=== PATIENT | male | born 1940 | race Caucasian/White ===

== ENCOUNTER → 2016-07-14 | Outpatient (CLI) | payer MEDICARE ==
[~2016-07-14] MED LIST: AMBIEN 5MG TABLE5 MG PO; ASPIRIN E.C. 8181 MG PO; CLEOCIN HCL300 MG PO; ELAVIL100 MG PO; FISH OIL1000 MG PO; FLOMAX 0.40.4 MG/CAP PO; IMDUR 30MG30 MG/TAB PO; KLONOPIN WAFER0.5 MG PO; LEXAPRO20 MG PO; LIPITOR20 MG PO; LIPOIC ACID, DL1 POW PO; LOPRESSOR 225 MG/TAB PO; MAALOX ADVANCED1 CTB PO; MIRALAX PA17 GM/Dose PO; MIRAPEX0.75 MG PO; MOBIC 7.5MG7.5 MG PO; MYRBETR25MG PO; NEUPRO1 MG/24 HR TD; NEXIUM 40MG40 MG PO; NITROSTAT0.4 MG/TAB SL; ULTRAM 50MG TAB50 MG PO; UNABLE; VICODIN 5/300 PO; VICODIN ES 7.5 PO; XANAX 0.5MG0.5 MG PO; [UNRECOGNIZED DRUG - OTHER]
== END ==
LOC: COL.VAS 12:10
DX: I65.23 Occlusion and stenosis of bilateral carotid arteries (principal)

== ENCOUNTER → 2016-08-18 | Outpatient (CLI) | payer MEDICARE | LOC: COL.CARD 12:53 | DX: R55 Syncope and collapse (principal) ==

== ENCOUNTER 2018-01-28 13:00 | Outpatient (RCR) | payer MEDICARE | END 2018-02-17 | disposition home or self-care (01) | LOC: WSPT | DX: M48.02 Spinal stenosis, cervical region (principal); Z79.82 Long term (current) use of aspirin; Z79.899 Other long term (current) drug therapy | CPT/HCPCS: G8981-GP; G8982-GP ==

== ENCOUNTER 2018-10-25 15:00 | Outpatient (RCR) | payer MEDICARE | END 2018-11-19 17:00 | disposition home or self-care (01) | LOC: WSPT 15:00 | DX: M54.2 Cervicalgia (principal) ==

== ENCOUNTER 2019-10-14 14:11 | Emergency (ER) | payer MEDICARE ==
[~2019-10-14] VITALS: Ht 177.8 cm; Wt 81.8 kg
[2019-10-14 14:17] VITALS: BP 188/120; TEMP 97.5
[2019-10-14] MEDS ORDERED: ULTRAM 50MG TAB50 MG PO (16:32)
[2019-10-14 18:12] VITALS: PULSE 58
== END 2019-10-14 17:06 | disposition home or self-care (01) ==
LOC: COL.ER 14:11
DX: S12.112A Nondisplaced Type II dens fracture, initial encounter for closed fracture (principal); I25.10 Atherosclerotic heart disease of native coronary artery without angina pectoris; R55 Syncope and collapse; Z90.89 Acquired absence of other organs; Z79.82 Long term (current) use of aspirin; Z87.891 Personal history of nicotine dependence; W22.8XXA Striking against or struck by other objects, initial encounter
CPT/HCPCS: L0120

== ENCOUNTER → 2020-02-02 | Outpatient (CLI) | payer MEDICARE | LOC: COL.RAD 08:10 | DX: S12.112D Nondisplaced Type II dens fracture, subsequent encounter for fracture with routine healing (principal); M47.812 Spondylosis without myelopathy or radiculopathy, cervical region ==

== ENCOUNTER → 2020-03-15 | Outpatient (CLI) | payer MEDICARE | LOC: COL.CARD 09:31 | DX: R55 Syncope and collapse (principal) ==

== ENCOUNTER → 2020-11-13 | Outpatient (CLI) | payer MEDICARE ==
[~2020-11-13] MED LIST changes: +ALPHA LIPOIC A200 M2 PO; +B-121000 MCG PO; +BENAZEPRIL PO; +FERROUSAL325 MG PO; +FOLIC ACID 11 MG/TA1 PO; +LIPITOR 10MG10 MG PO; -LIPITOR20 MG PO; +LOTENSIN HCT 101 TAB PO; +MAGNESIUM500 MG PO; +MELATON PO; +PROLIA60 MG/ML SQ; +REQUIP XL2 MG PO; +REQUIP XL4 MG PO; +THE MEDICINE S200 M2 PO; +TOPROL XL 25MG25 MG PO; +VITAMIN C500 MG PO; +VITAMIN D31000 I1 PO; +[UNRECOGNIZED DRUG - OTHER] PO
== END ==
LOC: COL.RAD 10:44
DX: I65.29 Occlusion and stenosis of unspecified carotid artery (principal); G25.81 Restless legs syndrome; G47.33 Obstructive sleep apnea (adult) (pediatric)
CPT/HCPCS: Q9967

== ENCOUNTER 2020-11-15 10:34 | Outpatient (CLI) | payer MEDICARE ==
[~2020-11-15] VITALS: Ht 177.8 cm; Wt 79.5 kg
[~2020-11-15 10:34] MED LIST changes: -ALPHA LIPOIC A200 M2 PO; -B-121000 MCG PO; -BENAZEPRIL PO; -FERROUSAL325 MG PO; -FOLIC ACID 11 MG/TA1 PO; -LOTENSIN HCT 101 TAB PO; -MAGNESIUM500 MG PO; -MELATON PO; -PROLIA60 MG/ML SQ; -REQUIP XL2 MG PO; -REQUIP XL4 MG PO; -THE MEDICINE S200 M2 PO; -TOPROL XL 25MG25 MG PO; -VITAMIN C500 MG PO; -VITAMIN D31000 I1 PO; -[UNRECOGNIZED DRUG - OTHER] PO
[2020-11-15 11:37] VITALS: BP 157/77; PULSE 56; TEMP 97
[2020-11-15] MEDS ORDERED: LOTENSIN HCT 101 TAB PO (12:05)
[2020-11-15] MEDS ORDERED: BENAZEPRIL PO (12:07)
[2020-11-15] MEDS ORDERED: [UNRECOGNIZED DRUG - OTHER] PO (12:07)
[2020-11-15] MEDS ORDERED: VITAMIN D31000 I1 PO (12:08)
[2020-11-15] MEDS ORDERED: THE MEDICINE S200 M2 PO (12:09)
[2020-11-15] MEDS ORDERED: FERROUSAL325 MG PO (12:15)
[2020-11-15] MEDS ORDERED: FOLIC ACID 11 MG/TA1 PO (12:17)
[2020-11-15] MEDS ORDERED: MAGNESIUM500 MG PO (12:17)
[2020-11-15] MEDS ORDERED: MELATON PO (12:18)
[2020-11-15] MEDS ORDERED: MYRBETR25MG PO (12:19)
[2020-11-15] MEDS ORDERED: TOPROL XL 25MG25 MG PO (12:19)
[2020-11-15] MEDS ORDERED: MIRALAX PA17 GM/Dose PO (12:20)
[2020-11-15] MEDS ORDERED: REQUIP XL4 MG PO (12:22)
[2020-11-15] MEDS ORDERED: REQUIP XL2 MG PO (12:22)
[2020-11-15] MEDS ORDERED: B-121000 MCG PO (12:25)
[2020-11-15] MEDS ORDERED: VITAMIN C500 MG PO (12:25)
[2020-11-15] MEDS ORDERED: PROLIA60 MG/ML SQ (12:26)
[2020-11-15] MEDS ORDERED: ALPHA LIPOIC A200 M2 PO (12:27)
[2020-11-15 13:00] VITALS: BP 160/99; PULSE 58
--- NOTE | 2020-11-15 13:15 | NUR ---
Pt escorted out via wheelchair by this nurse.
== END 2020-11-15 16:06 ==
LOC: COL.CAR 10:34
DX: R55 Syncope and collapse (principal); F41.9 Anxiety disorder, unspecified; I25.10 Atherosclerotic heart disease of native coronary artery without angina pectoris; N40.0 Benign prostatic hyperplasia without lower urinary tract symptoms; F32.9 Major depressive disorder, single episode, unspecified; I10 Essential (primary) hypertension; K21.9 Gastro-esophageal reflux disease without esophagitis; E78.5 Hyperlipidemia, unspecified; D50.9 Iron deficiency anemia, unspecified; G89.29 Other chronic pain; G47.30 Sleep apnea, unspecified

== ENCOUNTER 2021-12-04 12:05 | Outpatient (CLI) | payer MEDICARE ==
[~2021-12-04] VITALS: Ht 177.8 cm; Wt 78.2 kg
[2021-12-04] VITALS (7 sets, daily range): BP systolic 123–168; BP diastolic 79–93; PULSE 57–74; TEMP 94.7
[~2021-12-04 12:05] MED LIST changes: +ALPHA LIPOIC A200 M2 PO; +B-121000 MCG PO; +BENAZEPRIL PO; +FERROUSAL325 MG PO; +FOLIC ACID 11 MG/TA1 PO; +LOTENSIN HCT 101 TAB PO; +MAGNESIUM500 MG PO; +MELATON PO; +PROLIA60 MG/ML SQ; +REQUIP XL2 MG PO; +REQUIP XL4 MG PO; +SUNOSI150 MG PO; +THE MEDICINE S200 M2 PO; +TOPROL XL 25MG25 MG PO; +VITAMIN C500 MG PO; +VITAMIN D31000 I1 PO; +[UNRECOGNIZED DRUG - OTHER] PO
--- NOTE | 2021-12-04 15:18 | NUR ---
Pt is ready for departure. Pt denies any new pain etc. I reviewed dc instructions r/t myelogram with patient, and he verbs understanding. Pt is steady on his feet. Pt to exit via wheelchair.
== END 2021-12-04 15:25 | disposition home or self-care (01) ==
LOC: COL.RAD 12:05
DX: M50.11 Cervical disc disorder with radiculopathy, high cervical region (principal); M50.121 Cervical disc disorder at C4-C5 level with radiculopathy; M50.123 Cervical disc disorder at C6-C7 level with radiculopathy; M50.13 Cervical disc disorder with radiculopathy, cervicothoracic region; M48.02 Spinal stenosis, cervical region; M41.9 Scoliosis, unspecified; M43.22 Fusion of spine, cervical region
CPT/HCPCS: Q9967

== ENCOUNTER 2022-04-23 11:00 | Outpatient (RCR) | payer MEDICARE ==
[2022-04-17 11:52] VITALS: BP 147/71; PULSE 68; TEMP 97.5
[2022-04-21 12:00] VITALS: BP 134/73; PULSE 78; TEMP 98
[~2022-04-23] VITALS: Ht 175.3 cm; Wt 78.8 kg
[~2022-04-23 11:00] MED LIST changes: +ASPIRIN 32325 MG/TAB PO; +BETAMETHASONE D15 G1 TP; +CELEBREX 200MG200 MG PO; +LOTENSIN5 MG PO; +MOTRIN 600600 MG/TAB PO; +NORCO 325 MG-51 TAB PO; +NORVASC2.5 MG PO; +PAXLOVID 150-11 EACH PO; +PHARMASSURE ZIN50 MG PO; +REQUIP2 MG PO; +REQUIP4 MG PO; +ROBAXIN 75750 MG/TAB PO; +ROXICODONE 55 MG/TAB PO; +SENEXON-S 50-81 EACH PO; +SENNA-LAX8.6 MG PO; +TYLENOL 500MG500 MG PO
[2022-04-23 11:39] VITALS: BP 110/53; PULSE 74; TEMP 97.8
--- NOTE | 2022-04-23 12:30 | NUR ---
PT doing well during his iron infusion. Pt has restless leg syndrome, so we took a walk around the nurses station. Pt was steady on his feet with a walker. he has call light and will call again if he would like to walk again.
== END 2022-04-23 16:26 | disposition home or self-care (01) ==
LOC: EUO 11:00
DX: E61.1 Iron deficiency (principal)
CPT/HCPCS: J1756; J7050

== ENCOUNTER 2022-06-09 14:15 | Outpatient (RCR) | payer MEDICARE | END 2022-06-13 | disposition home or self-care (01) | LOC: WSPT | DX: Z47.89 Encounter for other orthopedic aftercare (principal); M25.551 Pain in right hip ==

== ENCOUNTER 2022-06-16 10:30 | Emergency (ER) | payer MEDICARE ==
[~2022-06-16] VITALS: Ht 177.8 cm; Wt 75.0 kg
[2022-06-16 10:53] LABS: BASO % 0.2 % (0.0-2.0); EOS # 0.1 K/mm3 (0.0-0.7); EOS % 1.2 % (0.0-4.0); GRAN # 8.1 K/mm3 (1.4-6.5); GRAN % 84.6 % (42.2-75.2); HEMOGLOBIN 10.2 g/dl (13.5-18.0); LYMPH # 0.5 K/mm3 (1.2-3.4); LYMPH % 4.8 % (20.0-51.0); MEAN CELL VOLUME 87 fl (80.0-100.0); MEAN CORPUSCULAR HEMOGLOBIN 30 pg (27-31); MEAN CORPUSCULAR HGB CONC 34 g/dl (33.0-37.0); MEAN PLATELET VOLUME 10.3 fl (7.4-10.4); MONO # 0.8 K/mm3 (0.1-0.6); MONO % 8.7 % (1.7-9.3); PLATELET COUNT 223 K/mm3 (130-400); RED BLOOD COUNT 3.43 M/mm3 (4.20-5.60); REDCELL DISTRIBUTION WIDTH-CV 15.4 % (11.5-14.5)
[2022-06-16 10:56] LABS: HEMATOCRIT 29.9 % (42.0-52.0)
[2022-06-16 11:07] LABS: ALBUMIN 3.2 gm/dL (3.4-4.8); BILIRUBIN,TOTAL 0.3 mg/dL (0.2-1.2); CALCIUM 8.2 mg/dL (8.4-10.2); CREATININE, serum 1.31 mg/dL (0.72-1.25); POTASSIUM 4.2 mmol/L (3.5-4.5)
[2022-06-16 11:13] LABS: TROPONIN-I 0.012 ng/mL (0.00-0.033)
[2022-06-16] MEDS ORDERED: DOXYCYCLINE 10100 MG PO (12:33)
[2022-06-16 13:13] VITALS: BP 148/76; PULSE 82; TEMP 98.1
== END 2022-06-16 13:13 | disposition home or self-care (01) ==
LOC: COL.ER 10:30
PROVIDERS: Emergency Medicine
DX: J18.9 Pneumonia, unspecified organism (principal); E87.1 Hypo-osmolality and hyponatremia; R74.01 Elevation of levels of liver transaminase levels; R79.89 Other specified abnormal findings of blood chemistry; R79.1 Abnormal coagulation profile; Z88.2 Allergy status to sulfonamides; Z88.1 Allergy status to other antibiotic agents; Z20.822 Contact with and (suspected) exposure to COVID-19
CPT/HCPCS: J0696; Q9967

== ENCOUNTER 2022-06-18 08:14 | Inpatient (IN) | payer MEDICARE ==
[~2022-06-18] VITALS: Ht 175.3 cm; Wt 75.0 kg
[~2022-06-18 08:14] MED LIST changes: +DOXYCYCLINE 10100 MG PO
[2022-06-18 08:57] LABS: BASO % 0.2 % (0.0-2.0); EOS # 0.1 K/mm3 (0.0-0.7); EOS % 1.5 % (0.0-4.0); GRAN # 7.2 K/mm3 (1.4-6.5); GRAN % 80.2 % (42.2-75.2); HEMOGLOBIN 10.2 g/dl (13.5-18.0); LYMPH # 0.7 K/mm3 (1.2-3.4); LYMPH % 7.3 % (20.0-51.0); MEAN CELL VOLUME 88 fl (80.0-100.0); MEAN CORPUSCULAR HEMOGLOBIN 30 pg (27-31); MEAN CORPUSCULAR HGB CONC 34 g/dl (33.0-37.0); MEAN PLATELET VOLUME 9.8 fl (7.4-10.4); MONO # 0.9 K/mm3 (0.1-0.6); MONO % 10.4 % (1.7-9.3); PLATELET COUNT 252 K/mm3 (130-400); RED BLOOD COUNT 3.42 M/mm3 (4.20-5.60); REDCELL DISTRIBUTION WIDTH-CV 15.6 % (11.5-14.5)
[2022-06-18 09:12] LABS: ALBUMIN 2.9 gm/dL (3.4-4.8); BILIRUBIN,TOTAL 0.3 mg/dL (0.2-1.2); C-REACTIVE PROTEIN 13.17 mg/dL (0.00-0.50); CALCIUM 7.4 mg/dL (8.4-10.2); TOTAL PROTEIN 6.6 gm/dL (6.2-8.1)
[2022-06-18] MEDS ORDERED: FLORINEF ACETA0.1 MG PO (09:14)
[2022-06-18] MEDS ORDERED: ASPIRIN 81M81 MG/TA2 PO (09:14)
[2022-06-18] MEDS ORDERED: SUNOSI150 MG PO (09:15)
[2022-06-18 11:53] LABS: COLLECTION METHOD CLEAN CATCH
[2022-06-18 12:10] LABS: SQUAMOUS EPITHELIAL None Seen /hpf (0-10); URINE BACTERIA Rare /hpf (NONE SEEN); URINE RBC None Seen /hpf (0-2)
[2022-06-18 12:11] LABS: URINE APPEARANCE Clear (CLEAR/HAZY); URINE BLOOD Negative (NEGATIVE); URINE COLOR Yellow (YELLOW); URINE GLUCOSE Negative (NEGATIVE); URINE KETONE Negative (NEGATIVE); URINE NITRATE Negative (NEGATIVE); URINE PROTEIN(semi-quant) Negative (NEGATIVE); URINE UROBILINOGEN 0.2 E.U/dL (0.2-1.0)
[2022-06-18] MEDS ORDERED: MIRAPEX0.25 MG PO (12:57)
[2022-06-18 13:48] VITALS: BP 119/74; PULSE 98; TEMP 98
[2022-06-18 16:28] VITALS: BP 171/77; PULSE 82; TEMP 97.5
[2022-06-18 16:45] LABS: CALCIUM 7.5 mg/dL (8.4-10.2); CREATININE, serum 0.86 mg/dL (0.72-1.25); POTASSIUM 4.2 mmol/L (3.5-4.5)
--- NOTE | 2022-06-18 18:31 | NUR ---
PATIENT IS HER FOR RLL PNEUMONIA WITH PLEURAL EFFUSIONS. PATIENT IS AXOX4, BUT IS CONFUSED AND IS NOT ABLE TO BE EDUCATED. EARLIER TODAY PATIENT WANTED TO LEAVE AMA, BECAUSE WE WOULD NOT LET HIM TAKE HIS HOME MEDICATIONS IN HIS ROOM. WE WERE ABLE TO CALL THE FAMILY, AND THE DAUGHTER CAME TO STAY WITH HIM. HE IS BETTER NOW. VSS. STARTED ON ZOSYN. PENDING URINE SAMPLE AMD SPUTUM. BED ALARM ON.
[2022-06-18 19:45] VITALS: BP 127/61; PULSE 81; TEMP 99.4
--- NOTE | 2022-06-18 20:40 | NUR ---
pt found with his home bottle of mirapex, refuses to give to nursing, pt feels he should not have to wait for nursing staff to bring meds to him. notified powerhouse electrician PHYLLIS Rojas. she discussed situation with pt, still refused to turn over. Mima Hurt APRN notified, will hold all scheduled mirapex.
[2022-06-18 23:27] VITALS: BP 97/68; PULSE 80; TEMP 98
[2022-06-19 03:00] VITALS: BP 137/73; PULSE 57; TEMP 98.8
--- NOTE | 2022-06-19 06:21 | NUR ---
pt insisting on self administering his own mirapex, will not turn over bottle to staff. holding scheduled mirapex. pt c/o severe chest and back pain with coughing this shift, started on norco and cough med as requested. requiring 1L O2 per NC, refused cpap tonite. urine collected and sent to lab, unable to cough up any sputum for testing.
[2022-06-19 06:59] LABS: BASO % 0.3 % (0.0-2.0); EOS # 0.2 K/mm3 (0.0-0.7); EOS % 2.7 % (0.0-4.0); GRAN # 5.8 K/mm3 (1.4-6.5); GRAN % 79.6 % (42.2-75.2); LYMPH # 0.6 K/mm3 (1.2-3.4); LYMPH % 7.5 % (20.0-51.0); MEAN CELL VOLUME 88 fl (80.0-100.0); MEAN CORPUSCULAR HGB CONC 33 g/dl (33.0-37.0); MEAN PLATELET VOLUME 10.4 fl (7.4-10.4); MONO # 0.7 K/mm3 (0.1-0.6); MONO % 9.4 % (1.7-9.3); PLATELET COUNT 224 K/mm3 (130-400); RED BLOOD COUNT 2.93 M/mm3 (4.20-5.60); REDCELL DISTRIBUTION WIDTH-CV 15.7 % (11.5-14.5)
[2022-06-19 07:00] LABS: HEMATOCRIT 25.9 % (42.0-52.0); HEMOGLOBIN 8.5 g/dl (13.5-18.0); MEAN CORPUSCULAR HEMOGLOBIN 29 pg (27-31)
[2022-06-19 07:27] LABS: CALCIUM 6.8 mg/dL (8.4-10.2); CREATININE, serum 0.8 mg/dL (0.72-1.25); POTASSIUM 3.9 mmol/L (3.5-4.5)
[2022-06-19 08:01] VITALS: BP 115/59; PULSE 73; TEMP 99.1
--- NOTE | 2022-06-19 10:44 | NUR ---
SHIFT ASSESSMENT COMPLETED AND MORNING MEDICATIONS ADMINISTERED PER ORDER. PATIENT IS ALERT AND ORIENTED X4. C/O PAIN /, WILL ADMINISTER PRN. PATIENT HAS HIS OWN MEDS IN HIS ROOM. THIS RN ATTEMPTED TO REMOVE MEDICATIONS, PATIENT WILL NOT ALLOW STAFF TO DO SO. EDUCATION PROVIDED ON RISKS OF HAVING MEDICATIONS IN ROOM AND INABILITY OF STAFF TO ADMINISTER CERTAIN MEDICATIONS DUE TO RISK OF OVERDOSING. PATIENT VERBALIZED UNDERSTANDING. DENIES NEEDS. CALL LIGHT WITHIN REACH.
--- NOTE | 2022-06-19 13:02 | NUR ---
PATIENT C/O PAIN 10/10 WHILE COUGHING. PATIENT NOTED TO BE DROWSY. PER BATH SOLUTION MAKER, PATIENT WAS FALLING ASLEEP WHILE DISCUSSING DIET WITH HER. PER PA, PATIENT WAS DROWSY DURING ROUNDS WELL. PATIENT CONTINUES TO KEEP MIRAPEX IN HIS ROOM AND IS TAKING MEDICATION WHEN HE WANTS. THIS RN UNAWARE OF HOW MANY DOSES PATIENT HAS HAD. PATIENT GIVEN PRN APAP PER ORDER FOR PAIN. PATIENT STATES HE IS CONTINUING TO HAVE PAIN AND WOULD LIKE NARCOTICS. THIS RN INFORMED PATIENT THAT DUE TO HIM BEING DROWSY AND TAKING AN UNKNOWN AMOUNT OF MIRAPEX, IT IS NOT SAFE TO HAVE NARCOTICS AT THIS TIME. PA AND HOSPITALIST UPDATED AND AGREE THAT RN SHOULD NOT ADMINISTER NARCOTICS WHILE PATIENT IS DROWSY AND TAKING UNKNOWN DOSES OF MIRAPEX. PATIENT'S DAUGHTER, SURAJ UPDATED. COLD HEADER UPDATED WHO WILL VISIT WITH THE PATIENT.
--- NOTE | 2022-06-19 13:08 | NUR ---
PATIENT REFUSED 1200 VITAL SIGNS.
--- NOTE | 2022-06-19 13:18 | NUR ---
PAIN MANAGEMENT DISCUSSED WITH PA. NEW ORDERS RECEIVED FOR IBUPROFEN AND LIDOCAINE PATCH. PATIENT UPDATED REGARDING PLAN OF CARE, IS AGREEABLE TO PAIN INTERVENTIONS AT THIS TIME.
[2022-06-19 14:00] VITALS: BP 124/70; PULSE 76
--- NOTE | 2022-06-19 14:01 | NUR ---
PATIENT STATES HE HAS ESOPHAGEAL SPASMS FOR WHICH HE TAKES SUBLINGUAL NITRO. PATIENT STATES HE IS CURRENTLY EXPERIENCING AN ESOPHAGEAL SPASM. DOM PATEL UPDATED, NEW ORDER FOR PRN NITRO RECEIVED IF SBP IS GREATER >110.
[2022-06-19 15:25] VITALS: BP 98/56; PULSE 62; TEMP 97.4
--- NOTE | 2022-06-19 15:39 | NUR ---
Junior Accountant met with patient to discuss discharge planning. Patient and his , Romy Ace live in [place] with their daughter, Nikia and son in law. Patient sees Dr. Childers for primary care and obtains medications from [facility]. Patient does not use home oxygen, however is currently requiring it. Patient uses a home CPAP. Patient reports independence with ADLS and plans to return home at time of discharge. PT/OT recommend home with Home Health. SW discussed HH with patient who stated he already has this established. Patient advised his primary DPOA-HC is his , Romy Ace. SW attempted to contact patient's daughter, Nikia and left a message. Discharge Plan: Home with HH
--- NOTE | 2022-06-19 18:14 | NUR ---
PATIENT IN BED AT THIS TIME. DENIES NEEDS OR PAIN. ON IV ZOSYN, TOLERATING WELL.
[2022-06-19 19:51] VITALS: BP 103/58; PULSE 61; TEMP 97.8
--- NOTE | 2022-06-19 20:30 | NUR ---
Initial shift assessment done- states only has pain when coughing now,, will give cough medicine with night meds, alert/oriented x4, Tele on-SR, having a productive cough- specimen cup given and sputum culture abtained and will send to lab, o2 sats 94% on RA, SCD,s on.
--- NOTE | 2022-06-19 22:00 | NUR ---
Mima CORNELIUS called regarding Metoprolol dose tonight- SBP 103,,HR 61,,states to hold just tonights dose for now--
[2022-06-19 23:37] VITALS: BP 135/66; PULSE 98; TEMP 97.5
[2022-06-20 03:19] VITALS: BP 125/70; PULSE 68; TEMP 97.7
--- NOTE | 2022-06-20 06:30 | NUR ---
States having pain when coughing-- Tylenol given and cough medicine given at this time.
[2022-06-20 06:39] LABS: BASO % 0.2 % (0.0-2.0); EOS # 0.3 K/mm3 (0.0-0.7); EOS % 4.4 % (0.0-4.0); GRAN # 5.1 K/mm3 (1.4-6.5); LYMPH # 0.6 K/mm3 (1.2-3.4); LYMPH % 9.1 % (20.0-51.0); MEAN CELL VOLUME 89 fl (80.0-100.0); MEAN CORPUSCULAR HGB CONC 33 g/dl (33.0-37.0); MEAN PLATELET VOLUME 10.2 fl (7.4-10.4); MONO # 0.6 K/mm3 (0.1-0.6); MONO % 8.8 % (1.7-9.3); PLATELET COUNT 266 K/mm3 (130-400); RED BLOOD COUNT 2.95 M/mm3 (4.20-5.60); REDCELL DISTRIBUTION WIDTH-CV 15.9 % (11.5-14.5)
[2022-06-20 06:40] LABS: CALCIUM 6.9 mg/dL (8.4-10.2); CREATININE, serum 0.82 mg/dL (0.72-1.25); POTASSIUM 3.9 mmol/L (3.5-4.5)
[2022-06-20 06:41] LABS: HEMATOCRIT 26.1 % (42.0-52.0); HEMOGLOBIN 8.7 g/dl (13.5-18.0); MEAN CORPUSCULAR HEMOGLOBIN 29 pg (27-31)
[2022-06-20 08:12] VITALS: BP 125/74; PULSE 75; TEMP 98.5
[2022-06-20 11:37] VITALS: BP 121/71; PULSE 79; TEMP 97.9
--- NOTE | 2022-06-20 14:27 | NUR ---
International Accounting Manager spoke with patient's daughter, Nikia about discharge planning. Nikia advised patient does not have established Home Health, but has been going to outpatient PT with [facility]. Nikia is open to Home Health depending on how patient does closer to discharge. NIGEL offered assistance with either continuing outpatient therapy vs establishing Home Health. Discharge Plan: Home, outpatient PT vs Home Health
--- NOTE | 2022-06-20 15:35 | NUR ---
PHARMACOLOGY TEACHER IN ROOM WITH PATIENT, PATIENT C/O PAIN 5/10. PRN APAP GIVEN BY PHARMACOLOGY TEACHER.
[2022-06-20 15:52] VITALS: BP 141/67; PULSE 71; TEMP 97.5
--- NOTE | 2022-06-20 17:17 | NUR ---
PATIENT IN BED AT THIS TIME EATING DINNER. STATES HIS PAIN IS IMPROVING AND HE IS HAVING LESS PAIN WHILE COUGHING. RATES CURRENT PAIN AT 3-4/10. REQUESTED PRN IBUPROFEN, STATES HE DOES NOT WANT TO TAKE NORCO AT THIS TIME. DR. LERNER UPDATED, NEW ORDER RECIEVED FOR IBUPROFEN X1. PATIENT DENIES FURTHER NEEDS AT THIS TIME, CALL LIGHT IN PLACE.
--- NOTE | 2022-06-20 18:43 | NUR ---
ASSESSMENT COMPLETED. AT APPROX 0940, PATIENT NOTED TO HAVE COUGHING EPISODE WITH INCREASED PAIN. PHYSICIAN IN ROOM AT TIME, EKG, TROPONIN, AND CTA ORDERED. PHYSICIAN AWARE OF RESULTS OF TESTING. MORPHINE GIVEN X1 FOR PAIN, WHICH PATIENT STATES WAS EFFECTIVE.
[2022-06-20 19:22] VITALS: BP 110/60; PULSE 64; TEMP 97.9
[2022-06-20 23:49] VITALS: BP 120/70; PULSE 66; TEMP 97.6
--- NOTE | 2022-06-21 01:31 | NUR ---
06/20/222014 THE PT. INFORMED ME THAT THE SURGEON HAD BEEN IN TO SEE HIM AND EXPLAINED THAT HE WOULD NE TAKING HIM FOR A PROCEDURE TOMORROW MORNING, I LET HIM KNOW I HAD NOT SEEN THE SURGEON MYSELF, BUT IF THAT WAS THE CASE THTA HE WOULD BE NPO AT MIDNIGHT, ABD THAT I WOULD KEEP MY EYE OUT FOR ANY ORDERS THT THE SURGEON ENTERED. PT. C/O INCREASED PAIN WITH COUGHING, BUT STATED THAT THE LEVEL OF PAIN THIS LAST TIME WAS BETTER THAN IT HAD BEEN THIS MORNING. HE STATED THAT HIS PAIN WITH COUGHING THIS MORNING WAS A 10/10, BUT THE LAST TIME HE STARTED COUGHING IT WAS ONLY AN 8/10.
[2022-06-21 03:26] VITALS: BP 147/75; PULSE 66; TEMP 97.4
[2022-06-21 06:29] LABS: BASO % 0.3 % (0.0-2.0); EOS # 0.3 K/mm3 (0.0-0.7); EOS % 3.8 % (0.0-4.0); GRAN # 5.1 K/mm3 (1.4-6.5); GRAN % 77.9 % (42.2-75.2); LYMPH # 0.5 K/mm3 (1.2-3.4); LYMPH % 8.3 % (20.0-51.0); MEAN CELL VOLUME 89 fl (80.0-100.0); MEAN CORPUSCULAR HGB CONC 33 g/dl (33.0-37.0); MEAN PLATELET VOLUME 10.1 fl (7.4-10.4); MONO # 0.6 K/mm3 (0.1-0.6); MONO % 8.9 % (1.7-9.3); PLATELET COUNT 308 K/mm3 (130-400); RED BLOOD COUNT 3.12 M/mm3 (4.20-5.60); REDCELL DISTRIBUTION WIDTH-CV 15.8 % (11.5-14.5)
[2022-06-21 06:36] LABS: HEMATOCRIT 27.7 % (42.0-52.0); HEMOGLOBIN 9.1 g/dl (13.5-18.0); MEAN CORPUSCULAR HEMOGLOBIN 29 pg (27-31)
[2022-06-21 06:46] LABS: CALCIUM 7.4 mg/dL (8.4-10.2); CREATININE, serum 0.84 mg/dL (0.72-1.25); POTASSIUM 4.1 mmol/L (3.5-4.5)
[2022-06-21 07:49] VITALS: BP 159/77; PULSE 76; TEMP 98
--- NOTE | 2022-06-21 08:00 | NUR ---
Consent signed. LR started at 30ml/hr on gravity tubing to RAC. Pt to OR via bed with OR nurse.
[2022-06-21 12:52] VITALS: BP 121/69; PULSE 69; TEMP 98.4
--- NOTE | 2022-06-21 13:45 | NUR ---
RETURNED FROM SURGERY AT 0945 - VITALS Q15 BEGAN UNTIL 1030 WHERE 4, 30 MINUTE CHECKS BEGAN.
[2022-06-21 15:35] VITALS: BP 145/84; PULSE 70; TEMP 97.5
--- NOTE | 2022-06-21 17:59 | NUR ---
ASSESSMENT COMPLETED THIS AM. A&O X4 AND PLEASANT THROUGHOUT SHIFT. O2 3L PER NC. CHEST TUBE PLACED THIS AM - TO SUCTION - TOTAL OF 180ML OF FLUID MEASURED IN DRAINAGE CHEST TUBE COLLECTION CANISTER. DRESSING REINFORED DUE TO SEROUSANGIOUSNESS NOTED ON ORIGINAL DRESSING THE DAY PROGRESSED. TYLENOL ADMINISTERED FOR COMPLAINTS OF PAIN TO CHEST TUBE INSERTION SITE. PT REPORTS TYLENOL EFFECTIVE. PT WENT MOST OF DAY WITHOUT VOIDING - ENCOURAGED FLUIDS - AND HAS SINCE HAS GOOD OUPUT.
[2022-06-21 19:41] VITALS: BP 141/75; PULSE 69; TEMP 97.5
--- NOTE | 2022-06-21 20:30 | NUR ---
PT.'S CHEST TUBE SITE HAD BEEN LEAKING EARLIER, SO I CHECKED THE SITE AND DRESSING TO MAKE SURE THAT IT WAS OK AFTER THEY HAD HAD TO REINFORCE IT. DRESSING IS C/D/I WITH NO SIGNS OF ANY NEW DRAINAGE, WILL CONTINUE TO MONITOR.
[2022-06-21 23:57] VITALS: BP 166/84; PULSE 69; TEMP 97.8
[2022-06-22 04:29] VITALS: BP 171/89; PULSE 69; TEMP 97.5
[2022-06-22 08:32] VITALS: BP 131/71; PULSE 71; TEMP 98
--- NOTE | 2022-06-22 10:24 | NUR ---
SW met with pt to complete intake. Pt reports he lives with , daughter and son in law. His daughter, Nikia @ [phone] and his is Romy Ace. Pt reports he has a CPAP, walker and walking stick and is independent on all ADLs. PCP is Jorge Martinez and gets medications from [facility]. No DPOA-HC is his . No other needs at this time. SW await for further recommendations and follow up as needed. DC: Home, pending PT Eval.
[2022-06-22 12:46] VITALS: BP 108/68; PULSE 71; TEMP 98.2
--- NOTE | 2022-06-22 16:35 | NUR ---
ASSESSMENT COMPLETED THIS AM. CHEST TUBE INCISION SHOWS NO NEW DRAINAGE SINCE YESTERDAY. REINFORCEMENT DRESSING CDI. SURGICAL DR. GARSIA CHEST TUBE SUCTION - CURRENTLY WATER SUCTION - OUTPUT DECREASED SINCE YESTERDAY. CHEST XRAY COMPLETED THIS MORNING, ANOTHER ONE SCHEDULED FOR THE AM. IV TO BOONE GARSIA PER KELLEN, NEW 22G IN LFA. PT HAS BEEN SITTING UP IN THE CHAIR MOST OF THE DAY. PTS PAIN HAS IMPROVED 4/10, DECLINES OFFER FOR TYLENOL.
[2022-06-22 19:18] VITALS: BP 145/79; PULSE 67; TEMP 98.5
[2022-06-22 23:06] VITALS: BP 160/80; PULSE 73; TEMP 97.1
[2022-06-23 03:24] VITALS: BP 156/84; PULSE 60; TEMP 97.9
[2022-06-23 06:56] LABS: BASO % 0.3 % (0.0-2.0); EOS # 0.3 K/mm3 (0.0-0.7); GRAN # 4.5 K/mm3 (1.4-6.5); LYMPH # 0.9 K/mm3 (1.2-3.4); LYMPH % 14.5 % (20.0-51.0); MEAN CELL VOLUME 90 fl (80.0-100.0); MEAN CORPUSCULAR HGB CONC 32 g/dl (33.0-37.0); MEAN PLATELET VOLUME 10.2 fl (7.4-10.4); MONO # 0.6 K/mm3 (0.1-0.6); MONO % 9.4 % (1.7-9.3); PLATELET COUNT 349 K/mm3 (130-400); RED BLOOD COUNT 3.32 M/mm3 (4.20-5.60); REDCELL DISTRIBUTION WIDTH-CV 15.7 % (11.5-14.5)
[2022-06-23 06:57] LABS: HEMATOCRIT 29.8 % (42.0-52.0); HEMOGLOBIN 9.6 g/dl (13.5-18.0); MEAN CORPUSCULAR HEMOGLOBIN 29 pg (27-31)
[2022-06-23 07:08] LABS: CALCIUM 8.3 mg/dL (8.4-10.2); CREATININE, serum 0.9 mg/dL (0.72-1.25); MAGNESIUM 1.8 mg/dL (1.6-2.6); POTASSIUM 4.5 mmol/L (3.5-4.5)
[2022-06-23 07:51] VITALS: BP 156/72; PULSE 67; TEMP 98.8
--- NOTE | 2022-06-23 09:20 | NUR ---
Assessment complete. A/O x4. Reports chest pain with non productive cough. Requests Tylenol. Denies need for cough medication or cough drops. Chest tube removed by physician this am. Dressing CDI. Denies SOA.
--- NOTE | 2022-06-23 10:33 | NUR ---
Pt agreaable to take Robutissin for cough- adminisetered. Tylenol adminstered for c/o chest/chest tube site discomfort from coughing. Pt walked with therapy this morning in hallway, now sitting up in chair. Wanting to go home today.
[2022-06-23 11:27] VITALS: BP 149/79; PULSE 65; TEMP 98
--- NOTE | 2022-06-23 12:51 | NUR ---
Pt reports improvement with pain and cough since receiving Tylenol and cough medication. Rates pain 3/10.
--- NOTE | 2022-06-23 13:23 | NUR ---
shift report received from PHYLLIS Macario
--- NOTE | 2022-06-23 13:33 | NUR ---
resting in chair visiting with and daughter, is alert and oriented, skin wwawrm and dry, color normal, heart rate strong and regular, lungs are CTA but diminished in the bases, gauze dressing to right chest area CD&I, peripheral pulses present in 4 extremities, abdomen rounded but soft and bowel sounds present, denies pain or needs at this time
--- NOTE | 2022-06-23 15:30 | NUR ---
remains resting in chair, provided diet pepsi per his request, other ventura denies needs
[2022-06-23 15:42] VITALS: BP 124/71; PULSE 71; TEMP 98.1
--- NOTE | 2022-06-23 19:17 | NUR ---
bedside shift report given to PHYLLIS Collado
[2022-06-23 19:33] VITALS: BP 162/80; PULSE 63; TEMP 98.3
--- NOTE | 2022-06-23 20:30 | NUR ---
Initial shift assessment done- denies pain at this time- previous ct site dressing dry and intact, states he is feeling much better, tele on, continues getting Zosyn IV as ordered. Up to bathroom with just minimal assistance,
[2022-06-23 23:26] VITALS: BP 147/78; PULSE 70; TEMP 97.8
[2022-06-24 04:21] VITALS: BP 163/83; PULSE 73; TEMP 98
--- NOTE | 2022-06-24 05:58 | NUR ---
VSS, states having heart burn so Mima CORNELIUS was called and order for Tums given, did get some sleep during the night-
--- NOTE | 2022-06-24 07:00 | NUR ---
PATIENT AWAKE AND ALERT, RESTING IN BED. PATIENT DENIES ANY NEEDS OR COPMLAINS AT THIS TIME. CALL LIGHT WITHIN REACH. PATIENT AWAKE USING HIS LAPTOP IN BED.
[2022-06-24 07:36] VITALS: BP 152/79; PULSE 69; TEMP 98.6
[2022-06-24] MEDS ORDERED: PROAIR HFA0.09 MG/AC IH (08:28)
--- NOTE | 2022-06-24 09:03 | NUR ---
Patient to discharge today. Has been receiving outpatient therapy through [facility] ([facility]). Patients clinical information and discharge orders faxed to agency. Patient presented with MCR.IM form. Education provided and patient verbalizes his agreement with discharge today. Signed original placed in the patients chart and copy provided back to the patient. Patient inquires about CADD OPERATOR care for his sister. Patient provided list of private duty care givers. Discharge plan: Home with outpatient therapy
[2022-06-24] MEDS ORDERED: AMOXICILLIN 8751 TAB PO (09:22)
--- NOTE | 2022-06-24 10:40 | NUR ---
PATIENT GIVEN DISCHARGE INSTRUCTIONS AND EDUCATION . TELE AND IV REMOVED. PATIENT STATED HIS RIDE WILL BE HERE TO PICK HIM UP AT 1110.
--- NOTE | 2022-06-24 11:20 | NUR ---
PATIENT TAKEN VIA WHEEL CHAIR TO PATIENT ENTRANCE WHERE HE LEFT IN STABLE CONDITION, PATIENT WAS PICKED UP.
== END 2022-06-24 11:20 | disposition home or self-care (01) | DRG 177 ==
LOC: COL.ER 08:14 → MEDICAL 09:59
PROVIDERS: Family Medicine; Internal Medicine; Physician Assistant; ADMIT Student in an Organized Health Care Education/Training Program
PROC: 0W993ZX Drainage of Right Pleural Cavity, Percutaneous Approach, Diagnostic (ICD-10-PCS; principal; 2022-06-18)
DX: J69.0 Pneumonitis due to inhalation of food and vomit (principal); J86.9 Pyothorax without fistula; E87.1 Hypo-osmolality and hyponatremia; E87.20 Acidosis, unspecified; J91.8 Pleural effusion in other conditions classified elsewhere; I10 Essential (primary) hypertension; K22.70 Barrett's esophagus without dysplasia; E78.5 Hyperlipidemia, unspecified; G47.33 Obstructive sleep apnea (adult) (pediatric); K59.09 Other constipation; G25.81 Restless legs syndrome; Z20.822 Contact with and (suspected) exposure to COVID-19; I95.1 Orthostatic hypotension; F32.A Depression, unspecified; D47.2 Monoclonal gammopathy; N40.0 Benign prostatic hyperplasia without lower urinary tract symptoms; N32.81 Overactive bladder; Z88.2 Allergy status to sulfonamides; Z88.8 Allergy status to other drugs, medicaments and biological substances; Z79.899 Other long term (current) drug therapy; I25.10 Atherosclerotic heart disease of native coronary artery without angina pectoris; Z95.818 Presence of other cardiac implants and grafts; D64.9 Anemia, unspecified; Z79.82 Long term (current) use of aspirin; I48.91 Unspecified atrial fibrillation
CPT/HCPCS: A7041; J0690; J0696; J1170; J2270; J2543; J2704; J3010; J7030; Q9967

== ENCOUNTER → 2022-12-23 | Outpatient (CLI) | payer MEDICARE ==
[~2022-12-23] MED LIST changes: +AMOXICILLIN 8751 TAB PO; +ASPIRIN 81M81 MG/TA2 PO; +FLORINEF ACETA0.1 MG PO; +METAMUCIL3.4 GM/DOS PO; +MIRAPEX0.25 MG PO; +OXY IR5 MG PO; +PROAIR HFA0.09 MG/AC IH; +VALTREX1 GM PO; +ZESTRIL2.5 MG PO
== END ==
LOC: MHCPAIN 10:25
DX: M47.892 Other spondylosis, cervical region (principal); M54.12 Radiculopathy, cervical region; M79.2 Neuralgia and neuritis, unspecified
CPT/HCPCS: G0463

== ENCOUNTER 2023-01-03 18:11 | Emergency (ER) | payer MEDICARE ==
[~2023-01-03] VITALS: Ht 167.6 cm; Wt 68.2 kg
[2023-01-03 18:14] VITALS: TEMP 97.8
[2023-01-03 18:42] LABS: BASO % 0.6 % (0.0-2.0); EOS # 0.1 K/mm3 (0.0-0.7); EOS % 2.2 % (0.0-4.0); GRAN # 3.6 K/mm3 (1.4-6.5); GRAN % 67.4 % (42.2-75.2); HEMATOCRIT 39.3 % (42.0-52.0); HEMOGLOBIN 13.1 g/dl (13.5-18.0); LYMPH % 18.2 % (20.0-51.0); MEAN CELL VOLUME 94 fl (80.0-100.0); MEAN CORPUSCULAR HEMOGLOBIN 31 pg (27-31); MEAN CORPUSCULAR HGB CONC 33 g/dl (33.0-37.0); MEAN PLATELET VOLUME 10.4 fl (7.4-10.4); MONO # 0.6 K/mm3 (0.1-0.6); MONO % 11.4 % (1.7-9.3); PLATELET COUNT 227 K/mm3 (130-400); RED BLOOD COUNT 4.18 M/mm3 (4.20-5.60); REDCELL DISTRIBUTION WIDTH-CV 14.8 % (11.5-14.5)
[2023-01-03 19:01] LABS: ALANINE AMINOTRANSFERASE 21 U/L (0-55); ALBUMIN 4.1 gm/dL (3.4-4.8); ALKALINE PHOSPHATASE 90 U/L (40-150); ANION GAP 9 mmol/L (7-16); AST,SGOT 22 U/L (5-34); BILIRUBIN,TOTAL 0.4 mg/dL (0.2-1.2); BLOOD UREA NITROGEN 26 mg/dL (8-26); CALCIUM 9.1 mg/dL (8.4-10.2); CARBON DIOXIDE 20 mmol/L (23-31); CHLORIDE 104 mmol/L (98-107); CREATININE, serum 0.98 mg/dL (0.72-1.25); GLUCOSE 103 mg/dL (70-99); POTASSIUM 4.5 mmol/L (3.5-4.5); SODIUM 133 mmol/L (136-145); TOTAL PROTEIN 7.3 gm/dL (6.2-8.1)
[2023-01-03 19:08] LABS: TROPONIN-I < 0.010 ng/mL (0.00-0.033)
[2023-01-03] MEDS ORDERED: PERCOCET 325 MG1 TA2 PO (20:00)
[2023-01-03 21:07] VITALS: BP 143/89; PULSE 64
== END 2023-01-03 20:13 | disposition home or self-care (01) ==
LOC: COL.ER 18:11
PROVIDERS: Personal Emergency Response Attendant
DX: M79.601 Pain in right arm (principal); G89.29 Other chronic pain
CPT/HCPCS: J2060; J2270; J2405; J7030

== ENCOUNTER → 2023-01-07 | Outpatient (CLI) | payer MEDICARE ==
[~2023-01-07] MED LIST changes: +PERCOCET 325 MG1 TA2 PO
== END ==
LOC: MHCPAIN 12:30
DX: M54.12 Radiculopathy, cervical region (principal); M25.511 Pain in right shoulder; M54.81 Occipital neuralgia; M96.1 Postlaminectomy syndrome, not elsewhere classified
CPT/HCPCS: G0463

== ENCOUNTER → 2023-03-25 | Outpatient (CLI) | payer MEDICARE ==
[~2023-03-25] MED LIST changes: +HALDOL .5M0.5 MG/TAB PO; +LEXAPRO 10MG10 MG PO; +LIPITOR 80MG80 MG PO; +MIRTAZAPINE7.5 MG PO; +MONODOX100 PO; +MULTI VITAMINS1 TAB PO; +NEURONTIN300 MG/CAP PO
== END ==
LOC: MHCPAIN 10:27
DX: M47.812 Spondylosis without myelopathy or radiculopathy, cervical region (principal); M54.81 Occipital neuralgia; G24.8 Other dystonia
CPT/HCPCS: G0463

== ENCOUNTER 2023-06-02 13:54 | Emergency (ER) | payer MEDICARE ==
[~2023-06-02] VITALS: Ht 175.3 cm; Wt 65.9 kg
[2023-06-02 14:03] VITALS: TEMP 97.5
[2023-06-02] MEDS ORDERED: ALPRAZolam 0.5 MG TAB PO ONE (15:15)
[2023-06-02] MEDS ORDERED: Gabapentin 300 MG CAP PO ONE (15:15)
[2023-06-02 15:38] LABS: BASO % 0.3 % (0.0-2.0); EOS # 0.1 K/mm3 (0.0-0.7); EOS % 1.1 % (0.0-4.0); GRAN # 5.3 K/mm3 (1.4-6.5); HEMOGLOBIN 12.2 g/dl (13.5-18.0); LYMPH # 0.4 K/mm3 (1.2-3.4); LYMPH % 6.8 % (20.0-51.0); MEAN CELL VOLUME 96 fl (80.0-100.0); MEAN CORPUSCULAR HEMOGLOBIN 33 pg (27-31); MEAN CORPUSCULAR HGB CONC 34 g/dl (33.0-37.0); MEAN PLATELET VOLUME 10.3 fl (7.4-10.4); MONO # 0.7 K/mm3 (0.1-0.6); MONO % 10.5 % (1.7-9.3); PLATELET COUNT 199 K/mm3 (130-400); RED BLOOD COUNT 3.74 M/mm3 (4.20-5.60); REDCELL DISTRIBUTION WIDTH-CV 13.7 % (11.5-14.5)
[2023-06-02 15:40] LABS: HEMATOCRIT 35.7 % (42.0-52.0)
[2023-06-02 16:09] LABS: ALANINE AMINOTRANSFERASE 34 U/L (0-55); ALBUMIN 3.7 gm/dL (3.4-4.8); ALKALINE PHOSPHATASE 59 U/L (40-150); ANION GAP 8 mmol/L (7-16); AST,SGOT 31 U/L (5-34); BILIRUBIN,TOTAL 0.3 mg/dL (0.2-1.2); BLOOD UREA NITROGEN 18 mg/dL (8-26); CALCIUM 8.6 mg/dL (8.4-10.2); CHLORIDE 100 mmol/L (98-107); CREATININE, serum 1.09 mg/dL (0.72-1.25); GLUCOSE 113 mg/dL (70-99); POTASSIUM 4.4 mmol/L (3.5-4.5); SODIUM 129 mmol/L (136-145); TOTAL PROTEIN 6.3 gm/dL (6.2-8.1)
[2023-06-02 16:19] LABS: TROPONIN-I < 0.010 ng/mL (0.00-0.033)
[2023-06-02 17:23] VITALS: BP 149/94; PULSE 60
== END 2023-06-02 17:23 | disposition home or self-care (01) ==
LOC: COL.ER 13:54
PROVIDERS: Internal Medicine
DX: F19.232 Other psychoactive substance dependence with withdrawal with perceptual disturbance (principal); F41.1 Generalized anxiety disorder; E87.1 Hypo-osmolality and hyponatremia

== ENCOUNTER → 2023-06-03 | Outpatient (CLI) | payer MEDICARE | LOC: MHCPAIN 09:19 | DX: M54.81 Occipital neuralgia (principal); M47.812 Spondylosis without myelopathy or radiculopathy, cervical region; M79.2 Neuralgia and neuritis, unspecified | CPT/HCPCS: G0463 ==

== ENCOUNTER 2023-12-31 08:07 | Outpatient (CLI) | payer MEDICARE ==
[~2023-12-31] VITALS: Ht 167.6 cm; Wt 68.1 kg
[~2023-12-31 08:07] MED LIST changes: +NEXIUM 24HR20 M1 PO
[2023-12-31 14:14] VITALS: BP 175/99; PULSE 70; TEMP 98.4
[2023-12-31] MEDS ORDERED: Denosumab 60 MG/ML SYRINGE SQ ONE (14:15)
--- NOTE | 2023-12-31 14:30 | NUR ---
PT TOLERATED INJECTION WELL. VS REMAINED WITHIN NORMAL LIMITS. PT ASSISTED TO WAITING ROOM FOLLOWING INJECTION. PT REMAINED FREE FROM ACUTE CONCERNS AND COMPLAINTS.
[2023-12-31] MEDS ORDERED: PROAIR HFA0.09 MG/AC IH (14:34)
[2023-12-31] MEDS ORDERED: OSCAL 500 TAB500 MG PO (14:34)
[2023-12-31] MEDS ORDERED: MAGNESIUM CITR100 MG PO (14:35)
[2023-12-31] MEDS ORDERED: DESYREL 50MG50 MG PO (14:37)
[2023-12-31] MEDS ORDERED: PAXIL 10MG10 MG PO (14:37)
== END 2023-12-31 14:37 | disposition home or self-care (01) ==
LOC: EUO 08:07
DX: M81.0 Age-related osteoporosis without current pathological fracture (principal)
CPT/HCPCS: J0897